=== PATIENT | male | born 1960 | race Caucasian/White ===

== ENCOUNTER 2024-12-26 20:12 | Emergency (ER) | payer MEDICARE, SELFPAY ==
[2024-12-26 20:14] VITALS: BP 167/90
[2024-12-26 20:29] LABS: % Basophils 0.2 % (0-2); % Immature Granulocytes 0.9 % (0-0.5); % Monocytes 2.8 % (1.7-9.3); % Neutrophils 91.1 % (42.2-75.2); Absolute Immature Granulocytes 0.1 10^3/uL (0-0.05); Absolute Lymphocytes 0.5 10^3/uL (1.2-3.4); Absolute Monocytes 0.3 10^3/uL (0.1-0.6); Absolute Neutrophils 9.9 10^3/uL (1.4-6.5); Hematocrit 50.1 % (39.0-52.0); Hemoglobin 17.2 g/dL (13.0-18.0); Mean Corp Hgb Conc. 34.3 g/dL (33.0-37.0); Mean Corpuscular Hgb 29.8 pg (27.0-31.0); Mean Corpuscular Volume 86.7 fL (80.0-94.0); Mean Platelet Volume 8.6 fL (7.4-10.4); Nucleated Red Blood Cells % 0 % (-); Platelet Count 253 10^3/uL (130-400); Red Blood Cell Count 5.78 10^6/uL (4.70-6.10); Red Cell Dist. Width 12.7 % (11.5-14.5); White Blood Cell Count 10.8 10^3/uL (4.8-10.8)
[2024-12-26 20:52] LABS: Blood Urea Nitrogen 24 mg/dl (9-20); Carbon Dioxide 24 mmol/L (22-30); Chloride 104 mmol/L (98-107); Glucose 192 mg/dl (70-99); Potassium 5.2 mmol/L (3.5-5.1); Sodium 137 mmol/L (135-145); eGFR > 60.00
--- NOTE | 2024-12-27 00:06 | ED.GENMED ---
History of Present Illness
General
Chief Complaint: Headache
Source: patient and spouse
Time Seen by Provider: 12/26/24 23:43
History of Present Illness
History of Present Illness:
This patient is a 64-year-old male who has had an intermittent headache on the left side for about 3 weeks. He recently saw his primary care doctor about this was noted to have an initial elevated blood pressure but then it was rechecked and it was
normal. His doctor checked his sed rate and he showed me on his phone that the result was 4. Nonetheless, his doctor wanted to just be sure that this was not related to temporal arteritis, so he started him on steroids and scheduled an MRI and
follow-up which is scheduled for mid January. The patient has been on steroids for about a week and does not feel any better. The headache is located at the left frontal area, comes and goes, is not sudden onset or worst of life. It seems to be
worse if he lays on his left side but otherwise there are no exacerbating relieving. Motrin would help it go away. He denies associated neck pain, trauma, numbness, tingling, fever, chills, chest pain, shortness of breath, vertigo, diplopia,
nausea, vomiting, change in speech, change in balance. 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 He did state that he occasionally will feel like his vision is a little blurry, but wonders
if this is related to his eyeglasses which he changed. He denies double vision.
Past History
Past History
ED Past Medical History: HTN
ED Past Surgical History: Orthopedic
Social History
Tobacco: Non-smoker
Alcohol: Occasional
Drug: None
Personal: (engaged)
Living: with family
Employment: Employed
Phy Exam
Physical Exam
Physical Exam:
GENERAL: Alert , in no apparent distress
EYE: pupils equal and reactive, EOMI, no nystagmus, no photophobia
NECK: Supple, no significant adenopathy.
ENT: o/p clr, mmm, no tenderness of temporal artery with palpation.
CARDIAC: Regular rate and rhythm .
LUNGS: Clear breath sounds bilaterally, no acute respiratory distress, no wheezes/rales/rhonchi
ABDOMEN: Soft, without focal tenderness, no r/g, no cvat
NEUROLOGICAL: Alert and oriented, no focal neuro deficits, [id number] normal, motor 5 out of 5, sensory intact, gait normal, cranial nerves II through XII intact
SKIN: Warm and dry, skin intact.
MUSCULOSKELETAL: No edema, well perfused.
PSYCH: Normal and appropriate interaction.
Course
Orders/Labs/Results
Orders:
Orders
12/26/24 20:24
Basic Metabolic Panel Urgent
CBC/With Diff [Complete Blood Count/With Diff] Urgent
12/27/24 00:01
CT Head W/o Iv Contrast Urgent
Reason For Exam: umanzor
12/27/24 00:10
Visual Acuity- Treatment ONCE
Abnormal Lab Results
12/26/24
20:24
Abs Immat Gran (auto) 0.1 H 10^3/uL
(0-0.05)
Absolute Neuts (auto) 9.9 H 10^3/uL
(1.4-6.5)
Absolute Lymphs (auto) 0.5 L 10^3/uL
(1.2-3.4)
Immature Gran % 0.9 H %
(0-0.5)
Neutrophils % 91.1 H %
(42.2-75.2)
Lymphocytes % 5.0 L %
(20.5-51.1)
Potassium 5.2 H mmol/L
(3.5-5.1)
BUN 24 H mg/dl
(9-20)
Glucose 192 H mg/dl
(70-99)
12/26/24 20:24
12/26/24 20:24
Vital Signs
Initial and Last Documented VS:
Initial Vital Signs
Temp Pulse Resp BP Pulse Ox
98.1 F 81 16 167/90 96
12/26/24 20:14 12/26/24 20:14 12/26/24 20:14 12/26/24 20:14 12/26/24 20:14
Last Documented Vital Signs
Temp Pulse Resp BP Pulse Ox
98.1 F 81 16 167/90 96
12/26/24 20:14 12/26/24 20:14 12/26/24 20:14 12/26/24 20:14 12/27/24 00:10
*Pulse Oximetry
SaO2: 96
Oxygen Mode of Delivery: Room air
*Critical Care Note
Total Time (30-74mins, 75-104mins- exclusive of procedures): Not Applicable
Update Note
Update Note:
Patient presents to the Emergency Department with ___headache
Number and Complexity of Problems Addressed at the Encounter
� Chronic conditions affecting care:
� Acute Exacerbation and/or Progression of Chronic Illness:
� Differential Diagnosis includes: But not limited to tension headache, migraine, temporal arteritis, etc. etc.
Amount and/or Complexity of Data to be Reviewed and Analyzed
� I performed an independent evaluation of and my interpretation is:
EKG:
CT: Vision report 'no acute hemorrhage, herniation, or hydro Cephus. No calvarial fracture. The visualized paranasal sinuses and mastoid air cells are clear'
Xrays:
Laboratory Studies: CBC and BMP unremarkable here
Other:
� Review of other/old records reveals: ESR was 4 within the last few weeks
� Clinical information was obtained by an independent historian: who is bedside
� Prescriptions/Medications Considered but not given:
� Further testing considered but not performed:
Risk of Complications and/or Morbidity or Mortality of Patient Management
� Social determinants of health affecting care:
� Discussion with other providers (PCP, Hospitalists, Consultants, etc):
� Escalation of care including admission/observation vs risk of discharge considered: I highly doubt temporal arteritis given normal sed rate and lack of tenderness to palpation of the temporal artery. Patient has a normal
neurological exam here, NIH of 0. Headache is intermittent, not worst of life or sudden onset to suggest SAH.
Visual acuity within normal limits. Patient remains comfortable, no headache, no visual complaints. Head CT and labs reviewed with patient. I have a low suspicion for TIA/CVA given workup here. Patient is due to get an MRI within the next few
weeks. I did encourage him to take a baby aspirin once a day and follow-up with his doctor this week. No red flag findings to suggest more worrisome etiology at this time
ED Attending Note
-
Portions of this chart may have been created with voice recognition software.� Occasional wrong word or��sound alike� substitutions may have occurred due to the inherent limitations of voice recognition software.
Discharge Plan
Departure
Patient Disposition: Home (Routine Discharge)
Date of Disposition: 12/27/24
Time of Disposition: 01:08
Patient with high blood pressure during this ER visit?: Yes
Condition: Good
Discharge Problem:
Headache
Instructions: Headache, Adult (DC), BLOOD PRESSURE
Prescriptions:
No Action
Lisinopril
20 mg PO DAILY
tamsulosin [Flomax] 0.4 MG capsule
0.4 mg PO DAILY Qty: 4 0RF
Referrals:
UNKNOWN - PT DOES,NOT KNOW [Family Provider]
Activity Restrictions/Additional Instructions:
PLEASE SEE YOUR DOCTOR IN CLOSE FOLLOW-UP. IF YOU DEVELOP INCREASING NEW OR PERSISTENT HEADACHE, VOMITING, NUMBNESS, TINGLING, DOUBLE VISION, FEVER, WEAKNESS, DIZZINESS, OR OTHER WORRISOME SIGNS, PLEASE RETURN TO THE ER IMMEDIATELY!
Interventions
Interventions:
*Risk Screen - Suicide Last Done: 12/26/24 20:14
*General Assessment Last Done: 12/27/24 00:30
*Neglect/Abuse Screening Last Done: 12/27/24 00:30
*ED- Fall Risk Assessment Last Done: 12/27/24 00:30
*ED COVID-19 Vaccine History Last Done: 12/27/24 00:30
*Nursing Disposition Last Done: 12/27/24 01:27
ED- Neurological Assessment Last Done: 12/27/24 00:30
Discharge Date and Time
Discharge Date/Time: 12/27/24 01:35
Print Language: KOREAN
== END 2024-12-27 01:35 | disposition home or self-care (01) ==
LOC: EMR 20:12
PROVIDERS: Student in an Organized Health Care Education/Training Program; EMERGENCY PHYSICIAN Emergency Medicine
DX: R51.9 Headache, unspecified (principal); I10 Essential (primary) hypertension
CPT/HCPCS: 99285; 70450; 80048; 85025